=== PATIENT | female | born 1960 | race Two or more races ===

== ENCOUNTER 2023-01-08 10:38 | Day surgery (SDC) | payer OTHER ==
[2023-01-04 14:44] VITALS: BMI 23.3
[2023-01-08] MEDS ORDERED: DEXAMETHASONE SOD PHOSPHATE/PF 10 MG/ML SDV ONE (12:40)
[2023-01-08] MEDS ORDERED: MIDAZOLAM HCL 2 MG/2 ML SINGLE DOSE VIAL ONE ×2 (12:40→13:59)
[2023-01-08] MEDS ORDERED: ROPIVACAINE HCL 0.5% 30ML VIAL ONE (12:40)
[2023-01-08] MEDS ORDERED: BUPIVACAINE HCL/EPINEPHRINE/PF 30 ML VIAL IJ ONE (13:18)
[2023-01-08] MEDS ORDERED: ATROPINE SO4 0.4 MG/1 ML VIAL ONE (14:02)
[2023-01-08] MEDS ORDERED: ONDANSETRON 4 MG/2 ML VIAL ONE (14:02)
[2023-01-08] MEDS ORDERED: DEXAMETHASONE SOD PHOSPHATE 4 MG/1 ML VIAL ONE (14:02)
[2023-01-08] MEDS ORDERED: ceFAZolin SODIUM 1 GM VIAL ONE (14:05)
[2023-01-08] MEDS ORDERED: PROPOFOL 20 ML ONE (14:12)
[2023-01-08] MEDS ORDERED: KETOROLAC TROMETHAMINE 30 MG/1 ML VIAL ONE (15:07)
[2023-01-08 15:36] VITALS: PULSE 69; RESP 16; TEMP 97.9
[2023-01-08 17:26] VITALS: BP 144/80
== END 2023-01-08 17:10 | disposition home or self-care (01) ==
LOC: FASU 10:38
PROVIDERS: ATTEND Orthopaedic Surgery
PROC: 0LS34ZZ Reposition Right Upper Arm Tendon, Percutaneous Endoscopic Approach (ICD-10-PCS; principal; 2023-01-08 14:23)
PROC: 0RNJ4ZZ Release Right Shoulder Joint, Percutaneous Endoscopic Approach (ICD-10-PCS; 2023-01-08 14:23)
PROC: 0RCJ4ZZ Extirpation of Matter from Right Shoulder Joint, Percutaneous Endoscopic Approach (ICD-10-PCS; 2023-01-08 14:23)
DX: S46.011D Strain of muscle(s) and tendon(s) of the rotator cuff of right shoulder, subsequent encounter (principal); M75.21 Bicipital tendinitis, right shoulder; M75.51 Bursitis of right shoulder; M65.811 Other synovitis and tenosynovitis, right shoulder; S43.431D Superior glenoid labrum lesion of right shoulder, subsequent encounter; M19.011 Primary osteoarthritis, right shoulder; M75.01 Adhesive capsulitis of right shoulder
CPT/HCPCS: 88304-TC; 88311-TC; C1713